=== PATIENT | female | born 1995 | race Caucasian/White ===

== ENCOUNTER 2016-03-21 03:15 | Emergency (ER) | payer MEDICAID, OTHER ==
[~2016-03-21] VITALS: Ht 157.5 cm; Wt 56.8 kg
[2016-03-21 03:23] VITALS: BP 138/82; PULSE 108; RESP 16; O2SAT 99
[2016-03-21] MEDS ORDERED: 0.9% Sodium Chloride 1,000 ML IV ONE ×2 (03:32→04:05)
[2016-03-21] MEDS ORDERED: Ondansetron 2 mg/mL 2 mL Inj IVPUSH ONE ×2 (03:35→04:05)
[2016-03-21] MEDS ORDERED: Pantoprazole 4 mg/mL 10 mL Inj IVPUSH ONE ×2 (03:35→04:05)
--- NOTE | 2016-03-21 03:54 | ED.REPORT ---
HPI-Abd Pain F Under 40 Date of Service Mar 21, 2016 ED Provider: Stefano Chris MD Patient is a 21 year old female who presents to the ED complaining of mid right sided abdominal pain that began yesterday at 7pm. Patient reports constant pain since that time, with radiation to her right flank. She reports associated nausea but denies vomiting. Patient did not eat food prior to onset of pain, her last big meal was at lunch. The patient is also constipated and last had a bowel movement yesterday. The patient does not have daily bowel movements. Patient denies hematuria or a history of kidney stones. Patient has not previously had any abdominal surgeries. She denies abnormal vaginal discharge or abnormal vaginal discharge, with normal menstrual periods. Patient denies diarrhea, rash, or fever. She denies a history of hepatitis, liver disease, alcohol or IV drug use. Nursing Notes Stated Complaint: ABDOMINAL PAIN Chief Complaint: Female Abdominal Pain Nursing Notes Reviewed: Yes Allergies: Coded Allergies: No Known Allergies (Unverified , 03/21/16) Scheduled Cefuroxime Axetil (Cefuroxime) 500 Mg Tablet 500 MG PO BID Ondansetron ODT (Ondansetron ODT) 8 Mg Tab.rapdis 8 MG PO QID General Time Seen by MD: 03:46 Chief Complaint Abdominal pain Hx Obtained From: Patient Arrived By: Walk-in Sudden in Onset?: No Onset Occurred: Yesterday (since 7pm) Symptom Duration: Since onset Progression since Onset: Constant Location: : Diffuse (right sided) Quality: Painful Radiation: : Flank right Severity: Current: Moderate Severity: Maximum: Moderate Recent Healthcare: No recent doctor visit, No recent hospitalization Similar Sx Previous: No Past Medical History Past Medical History Healthy Past Surgical History none Smoking History Unknown if Ever Smoker Social History Alcohol Use: Denies alcohol use Drug Use: Denies drug use Other Social History: Good social support, Local resident Ambulatory Status Independent Review of Systems Constitutional: Denies: Fever GI: Reports: Abdominal pain, Constipation, Nausea, Denies: Diarrhea, Vomiting Female: Reports: Flank pain, Denies: Hematuria, Vaginal bleeding - abnl, Vaginal discharge Complete sys rev & neg: except as marked. Skin: Denies Rash Physical Exam Initial Vital Signs Vital Signs (First) Date Time Temp Pulse Resp B/P Pulse Ox O2 Delivery O2 Flow Rate FiO2 03/21/16 03:23 36.7 108 16 138/82 99 Room Air Initial VS: Reviewed Head / Eyes: Atraumatic, Normocephalic, PERRL Neck: Supple, Full range of motion Extremities: Vascular intact, Neuro intact Skin: Warm, Dry, No cyanosis Neurologic: Alert, Oriented, Nonfocal Psychiatric: Mood/affect normal, Behavior normal, Normal thought content General/Constitutional: Awake, Alert, No acute distress Respiratory / Chest: Breath sounds NL, Breath sounds = bilat, No respiratory distress, No rales, No rhonchi, No wheezing Cardiovascular: Heart rate NL, Regular rhythm, No murmurs Abdomen: Soft tender right midabdomen Back: No midline vertebral tend Flank / Spine / Paraspinal: Positive: Flank tender R, Negative: Flank tender L Interpretation & Diagnostics Interpretation & Diagnostics: Urine : Negative Lab Results Interpretation Result Diagram: 03/21/16 0340 03/21/16 0340 Test 03/21/16 02:04 03/21/16 03:40 Urine Color Yellow (YELLOW) Urine Appearance Cloudy (CLEAR,HAZY) Urine pH 6.5 (5.0-8.0) Urine Specific [place] 1.020 (1.003-1.035) Urine Protein 100mg/dL (NEG,TRACE) Urine Glucose (UA) Negativemg/dL (NEGATIVE) Urine Ketones Negativemg/dL (NEGATIVE) Urine Occult Blood Large (NEGATIVE) Urine Nitrite Negative (NEGATIVE) Urine Bilirubin Negative (NEGATIVE) Urine Urobilinogen Normalmg/dL (NORMAL) Urine Leukocyte Esterase Moderate (NEGATIVE) Urine RBC Packed/hpf (0-2) Urine WBC >50/hpf (0-5) Urine Epithelial Cells Occasional/hpf (NONE-MOD) Urine Crystals None seen (NONE SEEN) Urine Bacteria Few/hpf (NONE-FEW) Urine Hyaline Casts None/lpf (NONE) Urine Granular Casts None seen (NONE SEEN) Urine Waxy Casts None seen (NONE SEEN) Urine Red Blood Cell Casts None seen (NONE SEEN) Urine White Blood Cell Casts None seen (NONE SEEN) Urine Mucus None seen (None Seen) Urine Trichomonas None seen (NONE SEEN) Urine Yeast None (NONE SEEN) Urine Culture Reflexed Indicated White Blood Count 9.9th/mm3 (3.8-10.1) Red Blood Count 4.54mil/mm3 (3.90-5.20) Hemoglobin 14.3g/dL (12.0-15.6) Hematocrit 41.2% (35.0-46.0) Mean Corpuscular Volume 90.7fL (81-100) Mean Corpuscular Hemoglobin 31.5pg (27.0-35.0) Mean Corpuscular Hemoglobin Concent 34.7% (32.0-37.0) Red Cell Distribution Width 11.8% (12.3-15.4) Platelet Count 219bil/L (150-400) Neutrophils (%) (Auto) 77.7% (40-74) Lymphocytes (%) (Auto) 12.7% (14-46) Monocytes (%) (Auto) 8.8% (4-12) Eosinophils (%) (Auto) 0.4% (0-5) Basophils (%) (Auto) 0.2% (0-3) Prothrombin Time 11.0sec (8.1-12.5) Prothromb Time International Ratio 1.03ratio Sodium Level 140mEq/L (134-144) Potassium Level 3.6mEq/L (3.5-5.2) Chloride Level 101mEq/L (97-108) Carbon Dioxide Level 21mmol/L (18-29) Blood Urea Nitrogen 8mg/dL (6-20) Creatinine 0.53mg/dL (0.57-1.00) Estimat Glomerular Filtration Rate 209mL/min (>59) Glucose Level 111mg/dL (60-99) Lactic Acid Level 1.4mmol/L (0.4-2.0) Calcium Level 9.5mg/dL (8.5-10.1) Magnesium Level 1.9mg/dL (1.6-2.6) Total Bilirubin 1.2mg/dL (0.0-1.2) Aspartate Amino Transf (AST/SGOT) 17U/L (0-50) Alanine Aminotransferase (ALT/SGPT) 13U/L (0-32) Alkaline Phosphatase 45U/L (25-150) Total Protein 8.0g/dL (6.4-8.4) Albumin 4.8g/dL (3.4-5.0) Lipase 13U/L (13-60) Re-Eval/Medical Decision Med Decision/Clinical Course Med Decision/Clinical Course: 21-year-old with right-sided abdominal pain and low-grade with some nausea. No overt dysuria or other contributing symptoms. Urinalysis is grossly positive with greater than fifty white cells per high-powered field. Laboratory otherwise unremarkable. Treatment for her apparent pyelonephritis with IV Rocephin and Ceftin to follow. Discharged in stable improved condition. Source of Hx: Old records Re-Evaluation/Progress : Time of Eval: 05:20 Patient Status: Condition improved Re-Evaluation/Progress Note: Patient was informed that she has a pyelonephritis and will need to be started on antibiotics. Patient understands and agrees with the plan to be discharged home. Discharge instructions and follow-up discussed. All questions were addressed. Return to the ED warnings given. Counseled Regarding: Diagnosis, Lab results, Need for follow-up, When/why to return to ED Discharge & Departure Primary Impression: Pyelonephritis Disposition: Home Discharge Condition All VS Reviewed: Yes Condition: Stable Patient Instructions: Acute Pyelonephritis (ED), Urinary Tract Infection in Women (ED) Additional Instructions: Take Ceftin twice daily for ten days. Drink plenty of fluids and stay well-hydrated. Follow-up with your doctor in the office. Return if any immediate issues, particularly if you develop fever or worsening symptoms despite treatment. Referrals: [facility] Scribe Attestation Portions of this note were transcribed by Elba Davalos. I, Dr. Chris personally performed the history, physical exam and medical decision-making; I reviewed and confirmed the accuracy of the information in the transcribed note. Signed by: Cassi Chance, 03/21/2016 0545 Stefano Chris MD Mar 21, 2016 03:54 Elba Davalos Mar 21, 2016 04:00
[2016-03-21 04:01] LABS: BASOPHILS % (AUTO) 0.2 % (0-3); EOSINOPHILS % (AUTO) 0.4 % (0-5); MONOCYTES % (AUTO) 8.8 % (4-12); Mean Corpuscular Hemoglobin 31.5 pg (27.0-35.0); Mean Corpuscular Volume 90.7 fL (81-100); NEUTROPHILS % (AUTO) 77.7 % (40-74); Platelet Count 219 bil/L (150-400)
[2016-03-21 04:15] LABS: INR 1.03 ratio
[2016-03-21 04:41] LABS: Magnesium 1.9 mg/dL (1.6-2.6)
[2016-03-21 05:06] LABS: APPEARANCE,URINE CLOUDY (CLEAR,HAZY); COLOR,URINE YELLOW (YELLOW); OCCULT BLOOD,URINE LARGE (NEGATIVE); PH,URINE 6.5 (5.0-8.0); UROBILINOGEN,URINE NORMAL (NORMAL)
[2016-03-21] MEDS ORDERED: cefTRIAXone Inj 2,000 MG in Dextrose 5% Minibag Plus 50 ML IV ONE (05:15)
[2016-03-21] MEDS ORDERED: CEFU500T61 PO (05:22)
[2016-03-21] MEDS ORDERED: ONDA8TAB10 PO (05:23)
[2016-03-21 05:53] VITALS: BP 103/63; PULSE 74; RESP 16; O2SAT 97
== END 2016-03-21 05:50 | disposition home or self-care (01) ==
LOC: SED 03:15
DX: N12 Tubulo-interstitial nephritis, not specified as acute or chronic (principal); B96.20 Unspecified Escherichia coli [E. coli] as the cause of diseases classified elsewhere
CPT/HCPCS: 36415; 80053; 81000; 81025; 83605; 83690; 83735; 85025; 85610; 87077; 87086; 87088; 87186; 96361; 96365; 96375; 99285; J0696; J2405; J7030

== ENCOUNTER 2016-06-21 17:35 | Emergency (ER) | payer OTHER ==
[~2016-06-21] VITALS: Ht 157.5 cm; Wt 54.5 kg
[~2016-06-21 17:35] MED LIST: CEFU500T61 PO; ONDA8TAB10 PO
[2016-06-21 17:38] VITALS: BP 118/73; PULSE 89; RESP 16; O2SAT 96
--- NOTE | 2016-06-21 17:58 | ED.REPORT ---
HPI-Abd Pain F Under 40 Date of Service June 21, 2016 ED Provider: Lillian PaulinoO. A 21 year old female with a history of pyelonephritis presents to the ED with right flank pain onset this morning. The pain is exacerbated with movement. The patient denies fever, vaginal discharge, or other symptoms. She does report recent new sexual partners. The patient has had similar symptoms associated with pyelonephritis in the past. Nursing Notes Stated Complaint: KIDNEY PAIN Chief Complaint: Female Abdominal Pain Nursing Notes Reviewed: Yes Allergies: Coded Allergies: No Known Allergies (Unverified , 03/21/16) Scheduled Cefuroxime Axetil (Cefuroxime) 500 Mg Tablet 500 MG PO BID Ondansetron ODT (Ondansetron ODT) 8 Mg Tab.rapdis 8 MG PO QID General Time Seen by MD: 17:58 Chief Complaint Flank pain right Hx Obtained From: Patient Arrived By: Walk-in Sudden in Onset?: Yes Onset Occurred: 9 - 12 hours ago Symptom Duration: Since onset Location: : Flank right Quality: Painful Severity: Current: Moderate Severity: Maximum: Moderate Sexual History / Control: Reports Pt is sexually active Pertinent Negative: Relieved by nothing Recent Healthcare: No recent doctor visit Similar Sx Previous: Yes Past Medical History Past Medical History Pyelonephritis Past Surgical History None reported Smoking History Unknown if Ever Smoker Social History Alcohol Use: Denies alcohol use Drug Use: Denies drug use Other Social History: Good social support, Local resident Occupation Works at [employer] Ambulatory Status Independent Review of Systems Constitutional: Denies: Fever Respiratory: Denies: Non-productive cough, Shortness of breath GI: Denies: Diarrhea, Vomiting Female: Reports: Flank pain (Right), Denies: Vaginal discharge Complete sys rev & neg: except as marked. Physical Exam Initial Vital Signs Vital Signs (First) Date Time Temp Pulse Resp B/P Pulse Ox O2 Delivery O2 Flow Rate FiO2 06/21/16 17:38 36.2 89 16 118/73 96 Room Air Initial VS: Reviewed Head / Eyes: Atraumatic, Normocephalic ENT: Conjunctiva normal, No scleral icterus Neck: Supple, Full range of motion Skin: Warm, Dry, No cyanosis Neurologic: Alert, Oriented, Nonfocal Psychiatric: Mood/affect normal, Behavior normal, Normal thought content General/Constitutional: Awake, Alert, No acute distress Respiratory / Chest: Breath sounds NL, Breath sounds = bilat, No respiratory distress Cardiovascular: Heart rate NL, Regular rhythm, Heart sounds NL Abdomen: Atraumatic, Soft, Non-tender Back: Atraumatic, Full range of motion Flank / Spine / Paraspinal: Positive: Flank tender R (Mild) Interpretation & Diagnostics URINE : Negative URINE DIPSTICK: Bedside Urine Specific [place] * 1.010 Bedside Urine pH * 8 Bedside Urine Leukocyte Esterase * + Bedside Urine Nitrite * Positive Bedside Urine Protein * ++ (100) Bedside Urine Glucose * Normal Bedside Urine Ketones * Negative Bedside Urine Bilirubin * + Bedside Urine Occult Blood * ~ 250 [place]/ml Urine to Lab * Yes Lab Results Interpretation Result Diagram: 06/21/16 1805 06/21/16 1805 Test 06/21/16 18:05 06/21/16 18:36 White Blood Count 9.2th/mm3 (3.8-10.1) Red Blood Count 4.61mil/mm3 (3.90-5.20) Hemoglobin 14.8g/dL (12.0-15.6) Hematocrit 42.8% (35.0-46.0) Mean Corpuscular Volume 92.8fL (81-100) Mean Corpuscular Hemoglobin 32.1pg (27.0-35.0) Mean Corpuscular Hemoglobin Concent 34.6% (32.0-37.0) Red Cell Distribution Width 12.2% (12.3-15.4) Platelet Count 251bil/L (150-400) Neutrophils (%) (Auto) 73.2% (40-74) Lymphocytes (%) (Auto) 14.8% (14-46) Monocytes (%) (Auto) 10.6% (4-12) Eosinophils (%) (Auto) 0.8% (0-5) Basophils (%) (Auto) 0.4% (0-3) Sodium Level 140mEq/L (134-144) Potassium Level 3.9mEq/L (3.5-5.2) Chloride Level 100mEq/L (97-108) Carbon Dioxide Level 26mmol/L (18-29) Blood Urea Nitrogen 9mg/dL (6-20) Creatinine 0.50mg/dL (0.57-1.00) Estimat Glomerular Filtration Rate 223mL/min (>59) Glucose Level 110mg/dL (60-99) Calcium Level 10.0mg/dL (8.5-10.1) Magnesium Level 2.0mg/dL (1.6-2.6) Total Bilirubin 1.3mg/dL (0.0-1.2) Aspartate Amino Transf (AST/SGOT) 14U/L (0-50) Alanine Aminotransferase (ALT/SGPT) 9U/L (0-32) Alkaline Phosphatase 44U/L (25-150) Total Protein 7.9g/dL (6.4-8.4) Albumin 4.8g/dL (3.4-5.0) Lipase 17U/L (13-60) Hold Mejias Top Tube Received (Received) Urine Color Yellow (YELLOW) Urine Appearance Clear (CLEAR,HAZY) Urine pH 7.5 (5.0-8.0) Urine Specific [place] 1.020 (1.003-1.035) Urine Protein 100mg/dL (NEG,TRACE) Urine Glucose (UA) Negativemg/dL (NEGATIVE) Urine Ketones Negativemg/dL (NEGATIVE) Urine Occult Blood Large (NEGATIVE) Urine Nitrite Positive (NEGATIVE) Urine Bilirubin Negative (NEGATIVE) Urine Urobilinogen Normalmg/dL (NORMAL) Urine Leukocyte Esterase Small (NEGATIVE) Urine RBC 3-10/hpf (0-2) Urine WBC 6-10/hpf (0-5) Urine Epithelial Cells Many/hpf (NONE-MOD) Urine Crystals None seen (NONE SEEN) Urine Bacteria Many/hpf (NONE-FEW) Urine Hyaline Casts None/lpf (NONE) Urine Granular Casts None seen (NONE SEEN) Urine Waxy Casts None seen (NONE SEEN) Urine Red Blood Cell Casts None seen (NONE SEEN) Urine White Blood Cell Casts None seen (NONE SEEN) Urine Mucus None seen (None Seen) Urine Trichomonas None seen (NONE SEEN) Urine Yeast None (NONE SEEN) Urinalysis Comment None Urine Culture Reflexed Indicated Re-Eval/Medical Decision Source of Hx: Old records Re-Evaluation/Progress : Time of Eval: 20:15 Patient Status: Condition improved Re-Evaluation/Progress Note: Discussed with patient lab results, diagnosis, and plan for discharge. Follow-up and return to the ER instructions given. Patient agrees with plan for care and all questions were addressed. Counseled Regarding: Diagnosis, Lab results, Need for follow-up, When/why to return to ED Discharge & Departure Primary Impression: Pyelonephritis Disposition: Home Discharge Condition All VS Reviewed: Yes Condition: Improved Patient Instructions: Urinary Tract Infection in Women (GEN) Additional Instructions: Bactrim twice daily for 7 days. [place] one every 6 hours as needed for severe pain. Drink plenty of liquids. We will culture your urine to be certain that Bactrim is an acceptable treatment. This should be available in [address] or drink alcohol or consume acetaminophen while taking the [place]. Set up a follow-up with your primary care physician for later this week. If you develop fever or increasing flank pain or any problems, come back to the emergency department. Your urine sample is also being tested for the other infections we discussed. This too should be available later this week. Make sure you follow this up with your doctor as well. Referrals: [facility] (PCP) [facility] Cassi Attestation Portions of this note were transcribed by Yajaira Taylor. I, Dr. Pryor, personally performed the history, physical exam, and medical decision-making; I reviewed and confirmed the accuracy of the information in the transcribed note. Signed by: Cassi Nolasco, 06/21/2016, 20:55 copies to: [facility] Gregory Pryor DO June 21, 2016 17:58 YAJAIRA TAYLOR June 21, 2016 18:08
[2016-06-21 18:16] LABS: BASOPHILS % (AUTO) 0.4 % (0-3); EOSINOPHILS % (AUTO) 0.8 % (0-5); MONOCYTES % (AUTO) 10.6 % (4-12); Mean Corpuscular Hemoglobin 32.1 pg (27.0-35.0); Mean Corpuscular Volume 92.8 fL (81-100); NEUTROPHILS % (AUTO) 73.2 % (40-74); Platelet Count 251 bil/L (150-400)
[2016-06-21 19:01] LABS: APPEARANCE,URINE CLEAR (CLEAR,HAZY); COLOR,URINE YELLOW (YELLOW); OCCULT BLOOD,URINE LARGE (NEGATIVE); PH,URINE 7.5 (5.0-8.0); UROBILINOGEN,URINE NORMAL (NORMAL)
[2016-06-21] MEDS ORDERED: cefTRIAXone Inj 2,000 MG in Dextrose 5% Minibag Plus 50 ML IV ONE (19:05)
[2016-06-21 19:41] VITALS: BP 112/63; PULSE 138; RESP 12; O2SAT 98
[2016-06-21] MEDS ORDERED: _HYDROcodone/APAP 5-325 mg Tablet PO PRN (20:25)
[2016-06-22] MEDS ORDERED: Sodium Chloride LOK Flush 10 mL Syringe IVFLUSH SCH (00:30)
== END 2016-06-21 20:23 | disposition home or self-care (01) ==
LOC: SED 17:35
DX: N10 Acute pyelonephritis (principal); B96.20 Unspecified Escherichia coli [E. coli] as the cause of diseases classified elsewhere
CPT/HCPCS: 36415; 80053; 81000; 81025; 83690; 83735; 85025; 87086; 87088; 87186; 87491; 87591; 96365; 99284; J0696